=== PATIENT | female | born 1990 | race African-American/Black ===

== ENCOUNTER 2016-09-09 15:22 | Emergency (ER) | payer OTHER ==
--- NOTE | ~2016-09-09 | CT4 ---
[facility] A Service of [facility] RADIOLOGY TEXT RESULTS PATIENT: ARTURO ORTEZ LOCATION: [facility] : 91 UNIT #: [id number] AGE: [address]: Sammie Vogel APRN SEX: F ORDER DR: [id number] [facility] [address] [place], [place] [address] [id number] E MR#: [id number] Acc #: [id number] NAME: ARTURO ORTEZ : 1990 SEX: F STUDY DATE/TIME: 09/09/2016 18:40 UNIT: [facility] ROOM: STUDY DESCRIPTION: CT Abd and Pelv Wo Cont Attending Physician: Sammie Vogel A.P.R.N. Ordering Physician: Ed Doctor [id number] [facility] Primary Care Physician: Primary Care Physician No MEDICAL IMAGING REPORT This report is preliminary unless electronic signature is present EXAM CT abdomen and pelvis INDICATIONS Back pain, nausea, abdominal pain. Bilateral flank pain. Renal calculi. TECHNIQUE CT of the abdomen and pelvis without contrast. Coronal and sagittal reconstructions were obtained. This CT exam was performed with one or more of the following radiation dose reduction techniques: automatic control, adjustment of mA and/or kV according to patient size, and iterative reconstruction. COMPARISON None available. FINDINGS ABDOMEN: 2 nonobstructing calculi are identified in the lower pole right kidney. There is mild right pelvicaliectasis. The distal ureter is challenging to discern from the adjacent soft tissues, however, there is a 4 mm calcification in the deep right pelvis. This could represent a distal ureteral stone. No left renal calculi or left hydronephrosis. Noncontrast evaluation of the solid abdominal organs are within normal limits. The gallbladder is not distended. The bowel is not dilated. There is a small umbilical hernia. There is diastases of the rectus abdominis muscles. Appendix is normal. PELVIS: The bladder is unremarkable. Uterus and ovaries are within normal limits. No enlarged pelvic or inguinal lymph nodes. No acute osseous abnormalities. [facility] RADIOLOGY TEXT RESULTS PATIENT: ARTURO ORTEZ LOCATION: [place] : 91 UNIT #: [id number] AGE: [address]: Sammie Vogel APRN SEX: F ORDER DR: IMPRESSION 1. Right nephrolithiasis. 2. 4 mm calcification in the deep right pelvis is in close vicinity to the right ureter, however, given the paucity of intraabdominal fat, the exact location of the ureter cannot be determined. Given mild right hydronephrosis I do suspect this represents a distal right ureteral stone. Confirmation of the right flank pain is recommended. Dictated by... Jasper Tapia M.D. THIS IS AN ELECTRONICALLY VERIFIED REPORT Jasper Tapia M.D. at 09/10/2016 10:54 AM HELDER/lavelle TD: 09/09/2016 19:23 JOB #: [id number] MEDICAL IMAGING REPORT Page 1 of 1 COPY
[~2016-09-09 15:22] MED LIST: ALBUTEROL17 GM INH; ATARAX PO; CIPRO PO; FLEXERIL10 MG PO; IBUPROFEN800 MG PO; NAPROXEN PO; PEPCID AC20 M1 PO; PREDNISONE PO; PROVERA10 MG PO; PYRIDIUM PO
[2016-09-09 16:30] LABS: URINE SOURCE CLEAN CATCH
[2016-09-09 16:44] LABS: CULTURE INDICATED? YES; URINE APPEARANCE CLOUDY; URINE BACTERIA AUWI 2+ (NEGATIVE); URINE BILIRUBIN NEG (NEG); URINE BLOOD 3+ (NEG); URINE COLOR YELLOW; URINE GLUCOSE NEG (NEG); URINE KETONE TRACE (NEG); URINE LEUKOCYTE ESTERASE 2+ (NEG); URINE NITRATE NEG (NEG); URINE PH 5.5 (5-8); URINE PROTEIN TRACE (NEG); URINE SPECIFIC GRAVITY 1.027 (1.003-1.035); URINE SQUAMOUS EPITHELIAL CELL MOD /[HPF]
[2016-09-09 16:52] LABS: URINE CRYSTALS CALCIUM OXALATE /[HPF]
[2016-09-09 18:05] LABS: BASOPHIL% 0.4 % (0-2.5); EOSINOPHIL# 0.2 X10e3 (0-0.7); EOSINOPHIL% 2.7 % (0.0-7.0); HEMATOCRIT 42.2 % (35.0-45.0); HEMOGLOBIN 13.4 gm/dL (12.0-16.0); LYMPHOCYTE# 2.7 X10e3 (1.0-3.5); LYMPHOCYTE% 34.6 % (17.0-45.0); MEAN CELL VOLUME 84.7 FL (83-96); MEAN CORPUSCULAR HEMOGLOBIN 26.8 PG (28-34); MEAN CORPUSCULAR HGB CONC 31.6 g/dL (30-36); MEAN PLATELET VOLUME 7.9 FL (6.5-11.5); MONOCYTE# 0.7 X10e3 (0-1.0); MONOCYTE% 8.6 % (3.0-12.0); NEUTROPHIL# 4.3 X10e3 (1.5-7.1); NEUTROPHIL% 53.7 % (40-75); PLATELET COUNT 249 X10e3 (140-420); RED BLOOD COUNT 4.99 X10e (3.90-5.30); RED CELL DISTRIBUTION WIDTH 14.6 % (11.0-15.5); WHITE BLOOD COUNT 7.9 X10e3 (4.0-10.5)
[2016-09-09 18:08] LABS: DIFF IND NO
[2016-09-09 18:30] LABS: ALBUMIN SERUM 3.8 g/dL (3.5-5.0); BILIRUBIN,TOTAL 0.3 mg/dL (0.2-2.0); BUN/CREATININE RATIO 13.33; CALCIUM SERUM 9.1 mg/dL (8.4-10.2); CREATININE SERUM 0.9 mg/dL (0.6-1.4); GLOM FILT RATE Estimated 103.1 mL/min (>60); PROTEIN TOTAL SERUM 7.7 g/dL (6.0-8.3)
[2016-09-11 23:35] LABS: CHLAMYDIA TRACH Not Detected (Not Detected); N GONOR Not Detected (Not Detected)
== END 2016-09-09 19:35 | disposition home or self-care (01) ==
LOC: CED 15:22 → CFTX 15:22
PROVIDERS: Nurse Practitioner
DX: N20.1 Calculus of ureter (principal); N30.00 Acute cystitis without hematuria; F41.9 Anxiety disorder, unspecified; J45.909 Unspecified asthma, uncomplicated; F17.210 Nicotine dependence, cigarettes, uncomplicated; Z87.442 Personal history of urinary calculi
CPT/HCPCS: 36415; 74176; 80053; 81003; 83690; 84703; 85025; 87086; 87491; 87591; 87808; 87905; 96361; 96374; 96375; 99284; J2270; J2405; J2550

== ENCOUNTER 2016-09-11 18:10 | Emergency (ER) | payer OTHER ==
[2016-09-11 22:22] LABS: URINE SOURCE CLEAN CATCH
[2016-09-11 22:29] LABS: URINE APPEARANCE CLEAR; URINE BILIRUBIN NEG (NEG); URINE BLOOD TRACE (NEG); URINE COLOR YELLOW; URINE GLUCOSE NEG (NEG); URINE KETONE NEG (NEG); URINE LEUKOCYTE ESTERASE 1+ (NEG); URINE NITRATE NEG (NEG); URINE PH 6.5 (5-8); URINE PROTEIN NEG (NEG); URINE SPECIFIC GRAVITY 1.018 (1.003-1.035); URINE UROBILINOGEN 0.2 MG/DL (NEG)
[2016-09-11 22:33] LABS: CULTURE INDICATED? YES; URINE BACTERIA AUWI NEG (NEGATIVE); URINE SQUAMOUS EPITHELIAL CELL OCC /[HPF]
[2016-09-11 22:45] LABS: URINE CRYSTALS CALCIUM OXALATE /[HPF]
== END 2016-09-12 00:56 | disposition home or self-care (01) ==
LOC: CED 18:10 → CFTX 18:10
DX: N20.1 Calculus of ureter (principal); F41.9 Anxiety disorder, unspecified
CPT/HCPCS: 36415; 81003; 87086; 96361; 96374; 96375; 99284; J1885; J2405

== ENCOUNTER 2016-10-01 16:09 | Emergency (ER) | payer OTHER ==
--- NOTE | ~2016-10-01 | CT4 ---
[facility] A Service of [facility] RADIOLOGY TEXT RESULTS PATIENT: ARTURO ORTEZ LOCATION: [facility] : 91 UNIT #: [id number] AGE: [address]: Marcy Garcia MD SEX: F ORDER DR: [id number] [facility] [address] [place], [place] [address] [id number] E MR#: [id number] Acc #: [id number] NAME: ARTURO ORTEZ : 1990 SEX: F STUDY DATE/TIME: 10/01/2016 18:07 UNIT: [facility] ROOM: STUDY DESCRIPTION: CT Abd and Pelv Wo Cont Attending Physician: Marcy Garcia M.D. Ordering Physician: Marcy Garcia M.D. MEDICAL IMAGING REPORT This report is preliminary unless electronic signature is present EXAM CT abdomen and pelvis without contrast 10/01/2016 HISTORY 26-year-old female with flank pain and nausea beginning yesterday. History of kidney stones. COMPARISON STUDIES CT abdomen and pelvis 09/09/2016. TECHNIQUE Helical scan performed through the abdomen and pelvis without oral or IV contrast. Coronal and sagittal reformatted images. This CT exam was performed with one or more of the following radiation dose reduction techniques: automatic exposure control, adjustment of mA and/or kV according to patient size, and iterative reconstruction. FINDINGS Visualized lung bases are unremarkable. The liver, spleen, pancreas, gallbladder, both adrenal glands are within normal limits. There are 2 punctate non-obstructing right intrarenal stones in the lower pole collecting system which are unchanged from prior study. The previously noted distal right ureteral stone has passed since the previous exam. No ureteral calculi identified on today's study. No hydronephrosis. Left kidney within normal limits. Abdominal aorta normal in course and caliber. Small bowel is unremarkable without obstruction. Appendix normal. Colon unremarkable. No free fluid or free air. The urinary bladder, uterus, and adnexa are unremarkable. No free pelvic fluid. No acute bony abnormality. [facility] A Service of [facility] RADIOLOGY TEXT RESULTS PATIENT: ARTURO ORTEZ LOCATION: [facility] : 91 UNIT #: [id number] AGE: [address]: Marcy Garcia MD SEX: F ORDER DR: IMPRESSION 1. Non-obstructing right intrarenal stones are unchanged from prior study. 2. Previously noted distal right ureteral calculus has passed since the prior exam. No ureteral stones or hydronephrosis. 3. Normal appendix. Dictated by... Asif Cullen M.D. THIS IS AN ELECTRONICALLY VERIFIED REPORT Asif Cullen M.D. at 10/02/2016 9:11 AM JOSE ANGEL/paul TD: 10/01/2016 21:46 JOB #: [id number] MEDICAL IMAGING REPORT Page 1 of 1 COPY
[2016-10-01 16:26] LABS: URINE SOURCE CLEAN CATCH
[2016-10-01 16:30] LABS: URINE APPEARANCE CLEAR; URINE BILIRUBIN NEG (NEG); URINE BLOOD NEG (NEG); URINE COLOR YELLOW; URINE GLUCOSE NEG (NEG); URINE KETONE TRACE (NEG); URINE LEUKOCYTE ESTERASE 2+ (NEG); URINE NITRATE NEG (NEG); URINE PH 6.5 (5-8); URINE PROTEIN NEG (NEG); URINE SPECIFIC GRAVITY 1.024 (1.003-1.035)
[2016-10-01 16:33] LABS: CULTURE INDICATED? YES; URINE BACTERIA AUWI 1+ (NEGATIVE); URINE SQUAMOUS EPITHELIAL CELL FEW /[HPF]
== END 2016-10-01 20:06 | disposition home or self-care (01) ==
LOC: CED 16:09
DX: N39.0 Urinary tract infection, site not specified (principal); Z87.442 Personal history of urinary calculi
CPT/HCPCS: 74176; 81003; 87086; 99283

== ENCOUNTER 2016-11-17 21:48 | Emergency (ER) | payer OTHER ==
[~2016-11-17] VITALS: Ht 157.5 cm; Wt 86.2 kg
== END 2016-11-17 23:30 | disposition left against medical advice (07) ==
LOC: CED 21:48
DX: Z53.21 Procedure and treatment not carried out due to patient leaving prior to being seen by health care provider (principal)